=== PATIENT | male | born 1970 | race Two or more races ===

== ENCOUNTER 2021-07-01 21:59 | Inpatient (IN) | payer MEDICAID ==
[~2021-07-01] VITALS: Ht 170.2 cm; Wt 63.5 kg
[2021-07-01] MEDS ORDERED: SODIUM CHLORIDE 0.9% 500 ML IV ONE (22:45)
[2021-07-01 23:07] LABS: BASOPHILS % 0.8 % (0.0-2.0); EOSINOPHILS % 3.8 % (0.0-5.0); HEMATOCRIT. 25.5 % (42.0-52.0); HEMOGLOBIN. 9.3 g/dL (14.0-18.0); LYMPHOCYTES % 41.9 % (20.0-50.0); MEAN CORPUSCULAR HEMOGLOBIN 36.6 pg (28.0-32.0); MEAN CORPUSCULAR VOLUME 100.7 fL (80.0-94.0); MEAN PLATELET VOLUME 6.4 fl (7.4-10.4); MONOCYTES % 14.8 % (2.0-8.0); NEUTROPHILS % 38.7 % (40.0-76.0); PLATELET 233 x1000/uL (130-400); RED BLOOD CELL COUNT 2.53 mill/uL (4.7-6.1); RED CELL DISTRIBUTION WIDTH 13.7 % (11.6-14.6)
[2021-07-01 23:15] LABS: CHLORIDE 104 mEq/L (98-107)
[2021-07-01 23:21] LABS: ETHANOL BLOOD 161 mg/dL
[2021-07-02 01:24] LABS: CLARITY URINE CLEAR (CLEAR); COLOR URINE YELLOW (YELLOW); KETONES URINE NEGATIVE (NEGATIVE); LEUKOCYTE ESTERASE URINE NEGATIVE (NEGATIVE); NITRITE URINE NEGATIVE (NEGATIVE); OCCULT BLOOD URINE NEGATIVE (NEGATIVE); PROTEIN URINE NEGATIVE (NEGATIVE); SPECIFIC GRAVITY URINE 1.008 (1.005-1.030); UROBILINOGEN URINE 0.2 E.U./dL (0.2-1.0)
[2021-07-02 01:56] LABS: *AMPHETAMINES SCREEN URINE PRESUMTIVE POSITIVE (NEGATIVE); *BARBITURATES SCREEN URINE NEGATIVE (NEGATIVE); *BENZODIAZEPINES SCREEN URINE NEGATIVE (NEGATIVE); *COCAINE SCREEN URINE NEGATIVE (NEGATIVE); METHADONE URINE SCREEN NEGATIVE (NEGATIVE); OPIATES URINE SCREEN NEGATIVE (NEGATIVE); PHENCYCLIDINE URINE SCREEN NEGATIVE (NEGATIVE)
[2021-07-02 01:57] LABS: CANNABINOID URINE SCREEN NEGATIVE (NEGATIVE)
[2021-07-02 09:00] VITALS: BP 117/69
[2021-07-02] MEDS ORDERED: CLONIDINE 0.1MG TABLET PO PRN (09:30)
[2021-07-02] MEDS ORDERED: ACETAMINOPHEN 325MG TABLET PO PRN (09:30)
[2021-07-02] MEDS ORDERED: IPRATROPIUM/ALBUTEROL 0.5-3(2.5)MG/3ML NEB HHN PRN (09:30)
[2021-07-02] MEDS ORDERED: DIPHENHYDRAMINE 50MG/ML VIAL IV PRN (09:30)
[2021-07-02] MEDS ORDERED: ONDANSETRON HCL 4MG/2ML INJ IV PRN (09:30)
[2021-07-02] MEDS ORDERED: ASPI-1406 PO (09:51)
[2021-07-02] MEDS ORDERED: CARV25TA47 PO (09:51)
[2021-07-02] MEDS ORDERED: AMLO-375 MT (09:51)
[2021-07-02] MEDS ORDERED: QUET100T33 PO (09:51)
[2021-07-02] MEDS ORDERED: LISI10TA26 PO (09:51)
[2021-07-02] MEDS ORDERED: FURO-151 MT (09:51)
[2021-07-02 12:00] VITALS: BP 124/84
[2021-07-02] MEDS: DIAZEPAM 2 MG TABLET PO SCH ×2 (12:32→20:33)
[2021-07-02] MEDS ORDERED: LORAZEPAM 2MG/ML CPJ IV PRN (12:45)
[2021-07-02] MEDS ORDERED: CHLORDIAZEPOXIDE 5 MG CAPSULE PO SCH ×2 (14:00)
[2021-07-02 16:00] VITALS: BP 122/87
[2021-07-02 17:20] LABS: CHLORIDE 101 mEq/L (98-107)
[2021-07-02 17:25] LABS: PHOSPHORUS 2.7 mg/dL (2.5-4.9)
[2021-07-02 17:28] LABS: CREATINE KINASE 87 IU/L (39-308)
[2021-07-02 20:00] VITALS: BP 84/34
[2021-07-02] MEDS: QUETIAPINE FUMARATE 50MG TABLET PO SCH (20:32)
[2021-07-02 21:40] VITALS: BP 129/89
[2021-07-03] VITALS: BP 111/78
[2021-07-03 00:15] LABS: *AMPHETAMINES SCREEN URINE PRESUMTIVE POSITIVE (NEGATIVE); *BENZODIAZEPINES SCREEN URINE NEGATIVE (NEGATIVE); *COCAINE SCREEN URINE NEGATIVE (NEGATIVE); METHADONE URINE SCREEN NEGATIVE (NEGATIVE)
[2021-07-03 00:16] LABS: CANNABINOID URINE SCREEN NEGATIVE (NEGATIVE); OPIATES URINE SCREEN NEGATIVE (NEGATIVE); PHENCYCLIDINE URINE SCREEN NEGATIVE (NEGATIVE)
[2021-07-03 00:17] LABS: *BARBITURATES SCREEN URINE NEGATIVE (NEGATIVE)
[2021-07-03 04:00] VITALS: BP 132/95
[2021-07-03] MEDS: DIAZEPAM 2 MG TABLET PO SCH ×3 (04:48→20:30)
[2021-07-03 08:00] VITALS: BP 151/109
[2021-07-03 08:00] LABS: CHLORIDE 101 mEq/L (98-107)
[2021-07-03 08:01] LABS: BASOPHILS % 0.5 % (0.0-2.0); EOSINOPHILS % 3.3 % (0.0-5.0); HEMATOCRIT. 34.4 % (42.0-52.0); HEMOGLOBIN. 11.6 g/dL (14.0-18.0); LYMPHOCYTES % 31.1 % (20.0-50.0); MEAN CORPUSCULAR HEMOGLOBIN 34.5 pg (28.0-32.0); MEAN PLATELET VOLUME 7.2 fl (7.4-10.4); MONOCYTES % 12.4 % (2.0-8.0); NEUTROPHILS % 52.7 % (40.0-76.0); PLATELET 292 x1000/uL (130-400); RED BLOOD CELL COUNT 3.37 mill/uL (4.7-6.1); RED CELL DISTRIBUTION WIDTH 14.2 % (11.6-14.6)
[2021-07-03 08:07] LABS: LDL CHOLESTEROL 72 mg/dL (5-100)
[2021-07-03 08:08] LABS: HDL CHOLESTEROL 71 mg/dL (40-59)
[2021-07-03] MEDS: QUETIAPINE FUMARATE 50MG TABLET PO SCH (08:40)
[2021-07-03] MEDS ORDERED: HYDROCODONE/ACETAMINOPHEN 5/325MG TABLET PO NR (09:00)
[2021-07-03] MEDS ORDERED: MAGNESIUM 1 G PREMIX 100 ML IV NR (10:00)
[2021-07-03] MEDS: CARVEDILOL 6.25 MG TABLET PO SCH ×2 (10:53→20:31)
[2021-07-03 12:00] VITALS: BP 130/91
[2021-07-03 16:00] VITALS: BP 111/86
[2021-07-03 20:00] VITALS: BP 130/91
[2021-07-04] VITALS (7 sets, daily range): BP systolic 108–126; BP diastolic 74–92
[2021-07-04] MEDS: DIAZEPAM 2 MG TABLET PO SCH ×2 (03:53→12:28)
[2021-07-04 06:32] LABS: CHLORIDE 99 mEq/L (98-107)
[2021-07-04 07:28] LABS: BASOPHILS % 0.8 % (0.0-2.0); EOSINOPHILS % 3.4 % (0.0-5.0); HEMATOCRIT. 33.8 % (42.0-52.0); HEMOGLOBIN. 11.4 g/dL (14.0-18.0); LYMPHOCYTES % 38.6 % (20.0-50.0); MEAN CORPUSCULAR VOLUME 103.4 fL (80.0-94.0); MEAN PLATELET VOLUME 7.4 fl (7.4-10.4); MONOCYTES % 12.3 % (2.0-8.0); NEUTROPHILS % 44.9 % (40.0-76.0); PLATELET 292 x1000/uL (130-400); RED BLOOD CELL COUNT 3.27 mill/uL (4.7-6.1)
[2021-07-04] MEDS: QUETIAPINE FUMARATE 50MG TABLET PO SCH (08:50)
[2021-07-04] MEDS: CARVEDILOL 6.25 MG TABLET PO SCH (08:50)
[2021-07-04] MEDS ORDERED: COR6 PO (15:58)
== END 2021-07-04 17:48 | disposition home or self-care (01) | DRG 207 ==
LOC: ER 21:59 → 6WST 07-02 04:55 → EDBEDREQTM 07-02 05:01 → EDBEDREQ 07-02 05:01 → ENRESERV 07-02 07:12
PROVIDERS: ADMIT Internal Medicine; ATTEND Internal Medicine
DX: I95.2 Hypotension due to drugs (principal); N17.9 Acute kidney failure, unspecified; E87.2 Acidosis; E44.1 Mild protein-calorie malnutrition; I50.9 Heart failure, unspecified; E87.1 Hypo-osmolality and hyponatremia; R16.0 Hepatomegaly, not elsewhere classified; I11.0 Hypertensive heart disease with heart failure; K44.9 Diaphragmatic hernia without obstruction or gangrene; K76.0 Fatty (change of) liver, not elsewhere classified; T50.915A Adverse effect of multiple unspecified drugs, medicaments and biological substances, initial encounter; F10.20 Alcohol dependence, uncomplicated; F15.10 Other stimulant abuse, uncomplicated; Y90.6 Blood alcohol level of 120-199 mg/100 ml; D64.9 Anemia, unspecified; N32.89 Other specified disorders of bladder; Z82.49 Family history of ischemic heart disease and other diseases of the circulatory system; Z68.21 Body mass index [BMI] 21.0-21.9, adult; Z87.891 Personal history of nicotine dependence; Y92.89 Other specified places as the place of occurrence of the external cause
CPT/HCPCS: 36415; 71045; 74176; 76770; 80048; 80053; 80061; 80305; 80320; 81003; 82550; 82570; 83605; 83735; 83880; 84100; 84153; 84300; 84443; 84484; 85025; 85379; 86160; 86850; 86900; 93005; 93306; 93880; 93970; 97162; 99291; J3475; J7040; A4315; G0103; G0480

== ENCOUNTER 2021-07-06 20:54 | Emergency (ER) | payer MEDICAID ==
[~2021-07-06] VITALS: Ht 167.6 cm; Wt 65.0 kg
[~2021-07-06 20:54] MED LIST: ASPI-1406 PO; COR6 PO; LISI10TA26 PO; QUET100T33 PO
[2021-07-06] MEDS ORDERED: SODIUM CHLORIDE 0.9% 1,000 ML IV ONE ×2 (21:15→23:15)
[2021-07-06 21:29] LABS: BASOPHILS % 0.8 % (0.0-2.0); EOSINOPHILS % 1.7 % (0.0-5.0); HEMATOCRIT. 30.5 % (42.0-52.0); HEMOGLOBIN. 10.6 g/dL (14.0-18.0); MEAN CORPUSCULAR HEMOGLOBIN 35.2 pg (28.0-32.0); MEAN CORPUSCULAR VOLUME 101.8 fL (80.0-94.0); MEAN PLATELET VOLUME 6.7 fl (7.4-10.4); MONOCYTES % 11.5 % (2.0-8.0); PLATELET 416 x1000/uL (130-400); RED CELL DISTRIBUTION WIDTH 14.3 % (11.6-14.6)
[2021-07-06 21:34] LABS: CHLORIDE 101 mEq/L (98-107)
[2021-07-07 00:26] LABS: CLARITY URINE CLEAR (CLEAR); COLOR URINE YELLOW (YELLOW); KETONES URINE NEGATIVE (NEGATIVE); LEUKOCYTE ESTERASE URINE NEGATIVE (NEGATIVE); NITRITE URINE NEGATIVE (NEGATIVE); OCCULT BLOOD URINE NEGATIVE (NEGATIVE); PROTEIN URINE NEGATIVE (NEGATIVE); SPECIFIC GRAVITY URINE 1.012 (1.005-1.030); UROBILINOGEN URINE 0.2 E.U./dL (0.2-1.0)
[2021-07-07 00:49] LABS: *AMPHETAMINES SCREEN URINE PRESUMTIVE POSITIVE (NEGATIVE); *BARBITURATES SCREEN URINE NEGATIVE (NEGATIVE); *BENZODIAZEPINES SCREEN URINE NEGATIVE (NEGATIVE); *COCAINE SCREEN URINE NEGATIVE (NEGATIVE); CANNABINOID URINE SCREEN NEGATIVE (NEGATIVE); PHENCYCLIDINE URINE SCREEN NEGATIVE (NEGATIVE)
[2021-07-07 00:50] LABS: METHADONE URINE SCREEN NEGATIVE (NEGATIVE); OPIATES URINE SCREEN NEGATIVE (NEGATIVE)
[2021-07-07 01:31] LABS: CHLORIDE 107 mEq/L (98-107)
[2021-07-07 03:07] VITALS: BP 127/75
== END 2021-07-07 03:09 | disposition home or self-care (01) ==
LOC: ER 20:54 → CANBEDREQ 07-07 04:30
DX: R55 Syncope and collapse (principal); I95.89 Other hypotension; T43.621A Poisoning by amphetamines, accidental (unintentional), initial encounter; I10 Essential (primary) hypertension; Y92.9 Unspecified place or not applicable; Z79.82 Long term (current) use of aspirin
CPT/HCPCS: 36415; 71045; 80048; 80053; 80305; 81003; 83880; 84484; 85025; 87040; 93005; 99285; J7030; Z7610

== ENCOUNTER 2022-08-23 04:29 | Emergency (ER) | payer MEDICAID ==
[~2022-08-23] VITALS: Ht 170.2 cm; Wt 64.0 kg
[~2022-08-23 04:29] MED LIST changes: -QUET100T33 PO; +QUET100T34 PO
[2022-08-23] MEDS ORDERED: MIDAZOLAM HCL 2 MG/2 ML VIAL IV ONE (05:30)
[2022-08-23] MEDS ORDERED: ASPIRIN 81MG TABLET PO ONE (05:30)
[2022-08-23 05:49] LABS: BASOPHILS % 0.8 % (0.0-2.0); CHLORIDE 96 mEq/L (98-107); EOSINOPHILS % 0.8 % (0.0-5.0); HEMATOCRIT. 39.2 % (42.0-52.0); LYMPHOCYTES % 19.1 % (20.0-50.0); MEAN CORPUSCULAR HEMOGLOBIN 34.6 pg (28.0-32.0); MEAN CORPUSCULAR VOLUME 96.8 fL (80.0-94.0); MEAN PLATELET VOLUME 7.5 fl (7.4-10.4); MONOCYTES % 7.3 % (2.0-8.0); PLATELET 331 x1000/uL (130-400); RED BLOOD CELL COUNT 4.05 mill/uL (4.7-6.1)
[2022-08-23 06:02] LABS: ETHANOL BLOOD < 10 mg/dL
[2022-08-23] MEDS ORDERED: POTASSIUM CHLORIDE 20MEQ TABLET SR PO ONE (06:15)
[2022-08-23] MEDS ORDERED: LORAZEPAM 1MG TABLET PO ONE (06:15)
[2022-08-23 07:37] LABS: CLARITY URINE CLEAR (CLEAR); COLOR URINE YELLOW (YELLOW); KETONES URINE 2+ (NEGATIVE); LEUKOCYTE ESTERASE URINE NEGATIVE (NEGATIVE); NITRITE URINE NEGATIVE (NEGATIVE); OCCULT BLOOD URINE NEGATIVE (NEGATIVE); PH URINE 7.5 (4.5-8.0); PROTEIN URINE NEGATIVE (NEGATIVE); SPECIFIC GRAVITY URINE 1.019 (1.005-1.030); UROBILINOGEN URINE 0.2 E.U./dL (0.2-1.0)
[2022-08-23 07:45] VITALS: BP 182/105
[2022-08-23 08:31] LABS: *AMPHETAMINES SCREEN URINE PRESUMTIVE POSITIVE (NEGATIVE); *BARBITURATES SCREEN URINE NEGATIVE (NEGATIVE); *BENZODIAZEPINES SCREEN URINE PRESUMTIVE POSITIVE (NEGATIVE); *COCAINE SCREEN URINE NEGATIVE (NEGATIVE); CANNABINOID URINE SCREEN NEGATIVE (NEGATIVE); METHADONE URINE SCREEN NEGATIVE (NEGATIVE); OPIATES URINE SCREEN NEGATIVE (NEGATIVE); PHENCYCLIDINE URINE SCREEN NEGATIVE (NEGATIVE)
== END 2022-08-23 08:05 | disposition home or self-care (01) ==
LOC: ER 04:45 → EDBEDREQ 06:47 → EDBEDREQSVC 06:47 → EDBEDREQTM 06:47 → EDBEDREQSVC 06:57 → EDBEDREQTM 07:28 → ER 08:05 → CANBEDREQ 08:10
DX: R07.89 Other chest pain (principal); F15.10 Other stimulant abuse, uncomplicated; Z79.82 Long term (current) use of aspirin; F17.200 Nicotine dependence, unspecified, uncomplicated; E87.8 Other disorders of electrolyte and fluid balance, not elsewhere classified; F12.10 Cannabis abuse, uncomplicated; I10 Essential (primary) hypertension
CPT/HCPCS: 36415; 71045; 80053; 80305; 80320; 81003; 83605; 83690; 83880; 84484; 85025; 93005; 96374; 99285; J2250; Z7610; G0480

== ENCOUNTER 2023-08-29 19:41 | Emergency (ER) | payer MEDICAID, OTHER ==
[~2023-08-29] VITALS: Ht 170.2 cm; Wt 57.0 kg
[2023-08-29 19:43] VITALS: TEMP 98.2; O2SAT 92
[2023-08-29 20:47] LABS: BASOPHILS % 0.8 % (0.0-2.0); EOSINOPHILS % 1.7 % (0.0-5.0); HEMATOCRIT. 35.7 % (42.0-52.0); HEMOGLOBIN. 12.5 g/dL (14.0-18.0); LYMPHOCYTES % 47.2 % (20.0-50.0); MEAN CORPUSCULAR HEMOGLOBIN 34.9 pg (28.0-32.0); MEAN CORPUSCULAR VOLUME 99.8 fL (80.0-94.0); MEAN PLATELET VOLUME 7.5 fl (7.4-10.4); MONOCYTES % 9.5 % (2.0-8.0); NEUTROPHILS % 40.8 % (40.0-76.0); PLATELET 270 x1000/uL (130-400); RED BLOOD CELL COUNT 3.58 mill/uL (4.7-6.1); RED CELL DISTRIBUTION WIDTH 12.3 % (11.6-14.6); WHITE BLOOD COUNT 6.5 x1000/uL (4.5-11.0)
[2023-08-29 20:54] LABS: CHLORIDE 101 mEq/L (98-107); INDEX HEMOLYSI 1 (1-3); INDEX ICTERIC 1 (1-4); INDEX LIPEMIC 1 (1-3); SODIUM 139 mEq/L (136-145)
[2023-08-29 21:03] LABS: ALANINE AMINOTRANSFERASE 49 IU/L (13-61); ALBUMIN 3.2 g/dL (3.4-5.0); ASPARTATE AMINOTRANSFERASE 138 IU/L (15-37); BILIRUBIN TOTAL 0.4 mg/dL (0.1-1.0); CALCIUM 7.9 mg/dL (8.5-10.1); CARBON DIOXIDE 28 mEq/L (21-32); CREATININE 0.6 mg/dL (0.6-1.3); ETHANOL BLOOD 202 mg/dL (<10); GLUCOSE 99 mg/dL (70-105); NT PRO B-TYPE NATRIURETIC PEP 35 pg/mL (5-125); TROPONIN I HIGH SENSITIVITY 7 ng/L (<78); UREA NITROGEN BLOOD 8 mg/dL (7-21)
[2023-08-29] MEDS ORDERED: MIRT-89 PO (21:10)
[2023-08-29] MEDS ORDERED: QUET400T53 PO (21:10)
[2023-08-29] MEDS ORDERED: FURO20TA4 PO (21:10)
[2023-08-29] MEDS ORDERED: DIPH50CA38 PO (21:10)
[2023-08-29] MEDS ORDERED: QUET300T20 PO (21:10)
[2023-08-29] MEDS ORDERED: LORA10TA7 PO (21:10)
[2023-08-29] MEDS ORDERED: AMLO5TAB88 PO (21:10)
[2023-08-29] MEDS ORDERED: CARV25TA47 PO (21:10)
[2023-08-29] MEDS ORDERED: POTASSIUM CHLORIDE 20MEQ TABLET SR PO NR (21:15)
[2023-08-29 21:25] LABS: CLARITY URINE CLEAR (CLEAR); COLOR URINE YELLOW (YELLOW); GLUCOSE URINE NEGATIVE (NEGATIVE); KETONES URINE NEGATIVE (NEGATIVE); LEUKOCYTE ESTERASE URINE NEGATIVE (NEGATIVE); NITRITE URINE NEGATIVE (NEGATIVE); OCCULT BLOOD URINE NEGATIVE (NEGATIVE); PH URINE 7.5 (4.5-8.0); PROTEIN URINE NEGATIVE (NEGATIVE); SPECIFIC GRAVITY URINE 1.007 (1.005-1.030)
[2023-08-29] MEDS ORDERED: KCL 20MEQ/100ML PREMIX 100 ML IV ONE (21:30)
[2023-08-29] MEDS ORDERED: FOLIC ACID 1 MG, THIAMINE HCL 100 MG, MVI, ADULT NO.1 10 ML in DEXTROSE 5% WATER 1,000 ML IV ONE ×4 (21:30)
[2023-08-29 21:38] LABS: *AMPHETAMINES SCREEN URINE PRESUMTIVE POSITIVE (NEGATIVE); *BARBITURATES SCREEN URINE NEGATIVE (NEGATIVE); *BENZODIAZEPINES SCREEN URINE NEGATIVE (NEGATIVE); *COCAINE SCREEN URINE NEGATIVE (NEGATIVE); CANNABINOID URINE SCREEN PRESUMTIVE POSITIVE (NEGATIVE); ECSTASY MDMA SCREEN URINE NEGATIVE (NEGATIVE); OPIATES URINE SCREEN NEGATIVE (NEGATIVE); PHENCYCLIDINE URINE SCREEN NEGATIVE (NEGATIVE)
[2023-08-29 22:36] VITALS: BP 159/105; PULSE 87; RESP 18
== END 2023-08-29 23:43 | disposition home or self-care (01) ==
LOC: ER 19:41
DX: R06.02 Shortness of breath (principal); I10 Essential (primary) hypertension; I25.2 Old myocardial infarction; F12.10 Cannabis abuse, uncomplicated; Z79.899 Other long term (current) drug therapy
CPT/HCPCS: 80053; 80305; 81003; 80320; 83880; 85025; 84484; 36415; 71045; 93005; 96365; 99285; J3490 ×2; J3480; J3411; J7070; Z7610 ×2; G0480

== ENCOUNTER 2023-09-02 01:26 | Emergency (ER) | payer OTHER ==
[~2023-09-02] VITALS: Ht 170.2 cm; Wt 61.0 kg
[~2023-09-02 01:26] MED LIST changes: +AMLO5TAB88 PO; -ASPI-1406 PO; +CARV25TA47 PO; -COR6 PO; +DIPH50CA38 PO; +FURO20TA4 PO; -LISI10TA26 PO; +LORA10TA7 PO; +MIRT-89 PO; -QUET100T34 PO; +QUET300T20 PO; +QUET400T53 PO
[2023-09-02 01:29] VITALS: BP 152/111; PULSE 110; RESP 16; TEMP 98.4; O2SAT 100
[2023-09-02] MEDS ORDERED: LORAZEPAM 2MG/ML CPJ IV STA (02:42)
[2023-09-02] MEDS ORDERED: MAGNESIUM 2 G PREMIX 50 ML IV ONE (02:45)
[2023-09-02] MEDS ORDERED: FOLIC ACID 1 MG, THIAMINE HCL 100 MG, MVI, ADULT NO.1 10 ML in DEXTROSE 5% WATER 1,000 ML IV ONE ×4 (02:45)
[2023-09-02 03:39] LABS: BASOPHILS % 0.8 % (0.0-2.0); DIFFERENTIAL COMMENT 0; EOSINOPHILS % 0.6 % (0.0-5.0); HEMOGLOBIN. 12.9 g/dL (14.0-18.0); LYMPHOCYTES % 28.4 % (20.0-50.0); MEAN CORPUSCULAR HEMOGLOBIN 34.3 pg (28.0-32.0); MEAN CORPUSCULAR VOLUME 100.7 fL (80.0-94.0); MEAN PLATELET VOLUME 7.1 fl (7.4-10.4); MONOCYTES % 10.7 % (2.0-8.0); NEUTROPHILS % 59.5 % (40.0-76.0); PLATELET 275 x1000/uL (130-400); RED BLOOD CELL COUNT 3.77 mill/uL (4.7-6.1); RED CELL DISTRIBUTION WIDTH 12.7 % (11.6-14.6); WHITE BLOOD COUNT 6.6 x1000/uL (4.5-11.0)
[2023-09-02 03:48] LABS: ALBUMIN 3.8 g/dL (3.4-5.0); CARBON DIOXIDE 20 mEq/L (21-32); CHLORIDE 95 mEq/L (98-107); ETHANOL BLOOD 71 mg/dL (<10); GLUCOSE 133 mg/dL (70-105); INDEX HEMOLYSI 1 (1-3); INDEX ICTERIC 1 (1-4); INDEX LIPEMIC 1 (1-3); POTASSIUM 3.9 mEq/L (3.5-5.1); SODIUM 133 mEq/L (136-145); UREA NITROGEN BLOOD 14 mg/dL (7-21)
[2023-09-02 05:17] LABS: ALANINE AMINOTRANSFERASE 47 IU/L (13-61); ASPARTATE AMINOTRANSFERASE 124 IU/L (15-37); BILIRUBIN TOTAL 0.8 mg/dL (0.1-1.0); CALCIUM 8.3 mg/dL (8.5-10.1); CREATININE 0.6 mg/dL (0.6-1.3); PROTEIN TOTAL 7.4 g/dL (6.0-8.3)
[2023-09-02] MEDS ORDERED: ONDA4TAB50 MT (06:21)
== END 2023-09-02 06:37 | disposition home or self-care (01) ==
LOC: ER 01:26
DX: F10.239 Alcohol dependence with withdrawal, unspecified (principal); F10.229 Alcohol dependence with intoxication, unspecified; F12.10 Cannabis abuse, uncomplicated; I25.2 Old myocardial infarction; I10 Essential (primary) hypertension; Y90.3 Blood alcohol level of 60-79 mg/100 ml
CPT/HCPCS: 80053; 80320; 83690; 85025; 36415; 71045; 99291; J3490 ×2; J3411; J7070; G0480

== ENCOUNTER 2024-02-09 16:16 | Emergency (ER) | payer MEDICAID, OTHER ==
[~2024-02-09] VITALS: Ht 170.2 cm; Wt 59.0 kg
[~2024-02-09 16:16] MED LIST changes: +ONDA4TAB50 MT
[2024-02-09 16:24] VITALS: BP 160/98; PULSE 87; RESP 18; TEMP 98.1; O2SAT 99
== END 2024-02-09 17:57 | disposition home or self-care (01) ==
LOC: ER 16:16
DX: S00.31XA Abrasion of nose, initial encounter (principal); I10 Essential (primary) hypertension; I25.2 Old myocardial infarction; F12.10 Cannabis abuse, uncomplicated; Z79.899 Other long term (current) drug therapy; W18.39XA Other fall on same level, initial encounter; Y93.89 Activity, other specified; Y92.89 Other specified places as the place of occurrence of the external cause; Y99.8 Other external cause status
CPT/HCPCS: 99281